=== PATIENT | female | born 1995 | race African-American/Black ===

== ENCOUNTER 2017-02-16 10:47 | Emergency (ER) | payer OTHER ==
[~2017-02-16] VITALS: Ht 149.9 cm; Wt 65.1 kg
[2017-02-16 12:38] LABS: ANION GAP 8 MEQ/L (8-16); BLOOD UREA NITROGEN 11 MG/DL (7-18); CALCIUM LEVEL 8.9 MG/DL (8.5-10.1); CARBON DIOXIDE LEVEL 26 MEQ/L (21-32); CHLORIDE LEVEL 105 MEQ/L (98-107); CONTROL LINE HCG INT CTR LINE PRESENT; CREATININE FOR GFR 0.83 MG/DL (0.55-1.02); GLOMERULAR FILTRATION RATE > 60.0 (>60); GLUCOSE, FASTING 87 MG/DL (70-105); POTASSIUM SERUM 4.2 MEQ/L (3.5-5.1); SODIUM LEVEL 139 MEQ/L (136-145)
[2017-02-16 13:45] LABS: BASO % 0.7 % (0.0-1.0); EOS # 0.1 K/mm3 (0.0-0.50); EOS % 1.8 % (0.0-3.0); LARGE UNSTAINED CELL # 0.1 K/mm3 (0.0-0.4); LARGE UNSTAINED CELL % 2.5 % (0.0-4.0); LYMPH # 1.9 K/mm3 (1.5-6.5); LYMPH % 36.6 % (24.0-44.0); MEAN CORPUSCULAR HEMOGLOBIN 29.8 pg (27.0-33.0); MEAN CORPUSCULAR HGB CONC 33.5 g/dl (32.0-36.5); MONO # 0.3 K/mm3 (0.0-0.8); MONO % 5.2 % (0.0-5.0); NEUTROPHILS # 2.8 K/mm3 (1.8-7.7); NEUTROPHILS % 53.1 % (36.0-66.0); PLATELET COUNT, AUTOMATED 213 k/mm3 (150-450); RED CELL DISTRIBUTION WIDTH 12.3 % (11.5-14.5); WHITE BLOOD COUNT 5.2 K/mm3 (4.0-10.0)
[2017-02-16 14:41] VITALS: BP 109/67
== END 2017-02-16 14:42 | disposition home or self-care (01) ==
LOC: M ED 10:47
DX: N93.9 Abnormal uterine and vaginal bleeding, unspecified (principal)

== ENCOUNTER → 2017-02-21 | Outpatient (CLI) | payer OTHER ==
[~2017-02-21] VITALS: Ht 149.9 cm; Wt 61.2 kg
[~2017-02-21] MED LIST: LIDOCAINE 2% INJ 100 MG/5 ML SDV (FOR ANES.) As Ordered ONE; MACR100C43 PO; NS 1,000 ML IV ONE; PRENTAB40 PO; PROPOFOL 200 MG/20 ML VIAL As Ordered ONE; REGL10TA6 PO; [UNRECOGNIZED DRUG - CODE] VA
--- NOTE | 2017-02-21 16:42 | ROOR ---
Patient Name: Angelina Samuel Procedure Date: 02/21/2017 4:30 PM Date of : 1995 Age: 21 Room: [facility] Gender: Female Note Status: Finalized Procedure: Upper GI endoscopy Indications: Heartburn Providers: Chriss MAYS MD Referring MD: LINNEA WATTS MD Requesting Provider: Medicines: Monitored Anesthesia Care Complications: No immediate complications. Procedure: Pre-Anesthesia Assessment: - The heart rate, respiratory rate, oxygen saturations, blood pressure, adequacy of pulmonary ventilation, and response to care were monitored throughout the procedure. The Endoscope was introduced through the mouth, and advanced to the second part of duodenum. The upper GI endoscopy was accomplished without difficulty. The patient tolerated the procedure well. Findings: The esophagus was normal. The stomach was normal. The examined duodenum was normal. Impression: - Normal esophagus. - Normal stomach. - Normal examined duodenum. - No specimens collected. - Non-erosive esophageal reflux (NERD) disease present. Recommendation: - Continue present medications. - Follow an antireflux regimen. Chriss Mays MD Chriss MAYS MD 02/21/2017 4:42:10 PM This report has been signed electronically. Number of Addenda: 0 Note Initiated On: 02/21/2017 4:30 PM Estimated Blood Loss: Estimated blood loss: none.
[2017-02-21 17:05] VITALS: BP 117/78
== END ==
LOC: M OPP 13:15
PROVIDERS: ATTEND Internal Medicine Gastroenterology
DX: R12 Heartburn (principal); K21.9 Gastro-esophageal reflux disease without esophagitis; Z79.899 Other long term (current) drug therapy

== ENCOUNTER 2017-03-21 08:57 | Emergency (ER) | payer OTHER ==
[~2017-03-21] VITALS: Ht 149.9 cm; Wt 64.0 kg
[2017-03-21 08:58] VITALS: BP 126/69
[2017-03-21] MEDS ORDERED: NS 1,000 ML IV ONE (09:45)
[2017-03-21 10:34] LABS: BASO % 0.3 % (0.0-1.0); EOS # 0.1 K/mm3 (0.0-0.50); EOS % 1.6 % (0.0-3.0); LARGE UNSTAINED CELL # 0.1 K/mm3 (0.0-0.4); LARGE UNSTAINED CELL % 2.1 % (0.0-4.0); LYMPH # 1.6 K/mm3 (1.5-6.5); LYMPH % 26.2 % (24.0-44.0); MEAN CORPUSCULAR HEMOGLOBIN 28.9 pg (27.0-33.0); MEAN CORPUSCULAR HGB CONC 33.4 g/dl (32.0-36.5); MEAN CORPUSCULAR VOLUME 86.6 fl (80.0-96.0); MONO # 0.3 K/mm3 (0.0-0.8); MONO % 5.5 % (0.0-5.0); NEUTROPHILS % 64.3 % (36.0-66.0); PLATELET COUNT, AUTOMATED 198 k/mm3 (150-450); RED CELL DISTRIBUTION WIDTH 12.2 % (11.5-14.5); WHITE BLOOD COUNT 6.2 K/mm3 (4.0-10.0)
[2017-03-21 10:39] LABS: ALBUMIN 3.9 GM/DL (3.2-5.2); ALBUMIN/GLOBULIN RATIO 1.11 (1.00-1.93); ALKALINE PHOSPHATASE 57 U/L (45-117); ALT/SGPT 14 U/L (12-78); ANION GAP 7 MEQ/L (8-16); AST/SGOT 9 U/L (15-37); BILIRUBIN,TOTAL 0.4 MG/DL (0.2-1.0); BLOOD UREA NITROGEN 8 MG/DL (7-18); CALCIUM LEVEL 8.7 MG/DL (8.5-10.1); CARBON DIOXIDE LEVEL 24 MEQ/L (21-32); CHLORIDE LEVEL 107 MEQ/L (98-107); GLOMERULAR FILTRATION RATE > 60.0 (>60); GLUCOSE, FASTING 91 MG/DL (70-105); HCG, SERUM QUANTITATIVE 635 MIU/ML; POTASSIUM SERUM 3.9 MEQ/L (3.5-5.1); SODIUM LEVEL 138 MEQ/L (136-145); TOTAL PROTEIN 7.4 GM/DL (6.4-8.2)
[2017-03-21] MEDS ORDERED: REGL10TA6 PO (11:41)
[2017-03-21] MEDS ORDERED: MACR100C43 PO (11:41)
[2017-03-21] MEDS ORDERED: NITROFURANTOIN (MACROBID) 100 MG CAP PO ONE (11:45)
[2017-03-21] MEDS ORDERED: NITROFURANTOIN (MACROBID) 100 MG CAP As Ordered ONE (11:46)
--- NOTE | 2017-03-21 11:47 | REP ---
First trimester obstetric ultrasound for pelvic pain: The patient is reportedly approximate 4 weeks gestational age. There are no comparison studies. The study is performed with endovaginal, transabdominal and Doppler ultrasound assessment. The bladder is adequately distended. There is no identifiable intrauterine gestational sac. This is nonspecific and could be from a very early gestation not yet visible ultrasonographically, spontaneous or ectopic gestation. Follow-up is recommended. The uterus is anteverted and normal size measuring 7.7 x 3.6 x 4.8 cm. The endometrium is not thickened measuring 3.5 mm. There is a left ovarian hemorrhagic 2.3 cm cyst, likely a corpus luteum. Including the cyst the left ovary is normal size measuring 3.1 x 2.7 x 3.1 cm. The right ovary is normal size measuring 3.2 x 1.2 x 2.5 cm. There is no dominant right ovarian mass or cyst. There is vascular flow in both ovaries with the Doppler resistive index of the intraparenchymal arteries on the left measuring 0.57 on the right 0.52. There is a small volume of free fluid in the cul-de-sac. Signed by Vasiliy Greenfield MD 03/21/2017 11:34 A
== END 2017-03-21 11:51 | disposition home or self-care (01) ==
LOC: M ED 08:57
DX: O26.891 Other specified pregnancy related conditions, first trimester (principal); R10.2 Pelvic and perineal pain; O34.81 Maternal care for other abnormalities of pelvic organs, first trimester; N83.292 Other ovarian cyst, left side; O23.41 Unspecified infection of urinary tract in pregnancy, first trimester; Z3A.01 Less than 8 weeks gestation of pregnancy

== ENCOUNTER 2017-04-07 09:35 | Emergency (ER) | payer OTHER ==
[~2017-04-07] VITALS: Ht 149.9 cm; Wt 61.4 kg
[~2017-04-07 09:35] MED LIST changes: -LIDOCAINE 2% INJ 100 MG/5 ML SDV (FOR ANES.) As Ordered ONE; -NS 1,000 ML IV ONE; -PRENTAB40 PO; -PROPOFOL 200 MG/20 ML VIAL As Ordered ONE; -[UNRECOGNIZED DRUG - CODE] VA
[2017-04-07] MEDS ORDERED: PRENTAB40 PO (09:41)
[2017-04-07] MEDS ORDERED: NS 1,000 ML IV ONE (10:15)
[2017-04-07 10:33] LABS: BASO % 0.4 % (0.0-1.0); EOS # 0.2 K/mm3 (0.0-0.50); EOS % 2.5 % (0.0-3.0); LARGE UNSTAINED CELL # 0.1 K/mm3 (0.0-0.4); LARGE UNSTAINED CELL % 1.4 % (0.0-4.0); LYMPH # 1.4 K/mm3 (1.5-6.5); LYMPH % 19.7 % (24.0-44.0); MEAN CORPUSCULAR HEMOGLOBIN 28.6 pg (27.0-33.0); MEAN CORPUSCULAR HGB CONC 33.1 g/dl (32.0-36.5); MEAN CORPUSCULAR VOLUME 86.4 fl (80.0-96.0); MONO # 0.3 K/mm3 (0.0-0.8); MONO % 4.4 % (0.0-5.0); NEUTROPHILS # 4.8 K/mm3 (1.8-7.7); NEUTROPHILS % 71.6 % (36.0-66.0); PLATELET COUNT, AUTOMATED 180 k/mm3 (150-450); RED CELL DISTRIBUTION WIDTH 12.6 % (11.5-14.5); WHITE BLOOD COUNT 6.7 K/mm3 (4.0-10.0)
--- NOTE | 2017-04-07 11:15 | REP ---
FIRST TRIMESTER ULTRASOUND: HISTORY: Vaginal bleeding. COMPARISON: 03/21/2017. A single intrauterine is present. [place] rump length is 9 mm corresponding to a gestational age of 6 weeks 6 days. heart rate is 158 beats per minute. There is no subchorionic hemorrhage. The adnexal and cul-de-sac regions are normal in appearance. IMPRESSION: There is a single intrauterine with a gestational age by ultrasound of 6 weeks 6 days. A repeat examination in 19-20 weeks is recommended for further evaluation. Signed by Chicho Hinojosa MD 04/07/2017 11:18 A
[2017-04-07 11:16] LABS: ALBUMIN 3.6 GM/DL (3.2-5.2); ALBUMIN/GLOBULIN RATIO 0.97 (1.00-1.93); ALKALINE PHOSPHATASE 53 U/L (45-117); ALT/SGPT 14 U/L (12-78); ANION GAP 10 MEQ/L (8-16); AST/SGOT 10 U/L (15-37); BILIRUBIN,DIRECT < 0.1 MG/DL (0.0-0.2); BILIRUBIN,TOTAL 0.3 MG/DL (0.2-1.0); BLOOD UREA NITROGEN 7 MG/DL (7-18); CALCIUM LEVEL 8.2 MG/DL (8.5-10.1); CARBON DIOXIDE LEVEL 24 MEQ/L (21-32); CHLORIDE LEVEL 106 MEQ/L (98-107); CREATININE FOR GFR 0.56 MG/DL (0.55-1.02); GLOMERULAR FILTRATION RATE > 60.0 (>60); GLUCOSE, FASTING 100 MG/DL (70-105); HCG, SERUM QUANTITATIVE 24853 MIU/ML; POTASSIUM SERUM 3.7 MEQ/L (3.5-5.1); SODIUM LEVEL 140 MEQ/L (136-145); TOTAL PROTEIN 7.3 GM/DL (6.4-8.2)
[2017-04-07] MEDS ORDERED: [UNRECOGNIZED DRUG - CODE] VA (13:42)
--- NOTE | 2017-04-07 13:50 | REP ---
LIMITED PELVIC ULTRASOUND: HISTORY: Right lower quadrant pain. The appendix is visualized. The appendix is normal in size measuring 2.1 x 1.6 x 2.4 cm. There is no appendicolith or free fluid. There is no mesenteric inflammation. IMPRESSION: Normal appendix. Signed by Chicho Hinojosa MD 04/07/2017 01:51 P
[2017-04-07 13:53] VITALS: BP 99/58
== END 2017-04-07 13:58 | disposition home or self-care (01) ==
LOC: M ED 09:35
DX: O23.591 Infection of other part of genital tract in pregnancy, first trimester (principal); B37.3 Candidiasis of vulva and vagina; O20.9 Hemorrhage in early pregnancy, unspecified; Z86.19 Personal history of other infectious and parasitic diseases; Z3A.01 Less than 8 weeks gestation of pregnancy

== ENCOUNTER 2017-11-01 05:18 | Outpatient (CLI) | payer OTHER ==
[2017-11-01 07:45] LABS: HEMOGLOBIN 12.9 g/dl (12.0-16.0); MEAN CORPUSCULAR HEMOGLOBIN 29.3 pg (27.0-33.0); MEAN CORPUSCULAR HGB CONC 33.9 g/dl (32.0-36.5); MEAN CORPUSCULAR VOLUME 86.2 fl (80.0-96.0); PLATELET COUNT, AUTOMATED 153 10^3/uL (150-450); RED BLOOD COUNT 4.41 10^6/uL (4.00-5.40); WHITE BLOOD COUNT 10.9 10^3/uL (4.0-10.0)
[2017-11-01] MEDS: diphenhydrAMINE INJ 50MG/ML VIAL (J1200) IV (08:02)
[2017-11-01] MEDS: LR 1,000 ML IV (08:02)
[2017-11-01] MEDS: PROCHLORPERAZINE 10 MG/2 ML VIAL (J0780) IV (08:02)
[2017-11-01 08:33] LABS: ALBUMIN/GLOBULIN RATIO 0.88 (1.00-1.93); ALKALINE PHOSPHATASE 150 U/L (45-117); ALT/SGPT 12 U/L (12-78); ANION GAP 7 MEQ/L (8-16); AST/SGOT 10 U/L (7-37); BILIRUBIN,TOTAL 0.3 MG/DL (0.2-1.0); BLOOD UREA NITROGEN 4 MG/DL (7-18); CALCIUM LEVEL 8.7 MG/DL (8.5-10.1); CARBON DIOXIDE LEVEL 25 MEQ/L (21-32); CHLORIDE LEVEL 108 MEQ/L (98-107); CREATININE FOR GFR 0.33 MG/DL (0.55-1.30); GLOMERULAR FILTRATION RATE > 60.0 (>60); GLUCOSE, FASTING 79 MG/DL (70-100); POTASSIUM SERUM 3.7 MEQ/L (3.5-5.1); SODIUM LEVEL 140 MEQ/L (136-145); TOTAL PROTEIN 6.4 GM/DL (6.4-8.2)
[2017-11-01 08:56] LABS: TOTAL PROTEIN,RANDOM URINE 26.8 MG/DL (0.0-12.0)
== END 2017-11-01 10:30 | disposition home or self-care (01) ==
LOC: M LDO 05:18
DX: O26.893 Other specified pregnancy related conditions, third trimester (principal); R51 Headache; O99.89 Other specified diseases and conditions complicating pregnancy, childbirth and the puerperium; R10.9 Unspecified abdominal pain; Z3A.37 37 weeks gestation of pregnancy
CPT/HCPCS: J1200